=== PATIENT | male | born 1960 | race Caucasian/White ===

== ENCOUNTER 2016-09-08 18:49 | Emergency (ER) | payer OTHER ==
[~2016-09-08] VITALS: Ht 180.3 cm; Wt 75.9 kg
[2016-09-08 19:02] VITALS: BP 113/72; PULSE 59; RESP 15; O2SAT 99
[2016-09-08] MEDS ORDERED: Silver Nitrate Stick TOPICAL ONE ×2 (20:15→20:30)
--- NOTE | 2016-09-08 20:17 | ED.REPORT ---
HPI-General Illness Date of Service Sep 08, 2016 ED Provider: Kodak Giron PA-C James is an otherwise healthy 56-year-old male with a chief complaint of a laceration. Patient reports cutting the end of his right thumb with a new cook box filler approximately 24 hours ago. States that he cut off portion of skin which he threw away. Complains that, although the bleeding stopped last night, it restarted several times today as he was working. Denies unusual bruising, dental bleeding, difficulty with bleeding at surgical procedures. Denies comorbidities such as diabetes, HIV or immunosuppression. The patient is right handed. He reports a recent tetanus booster. Nursing Notes Stated Complaint: RIGHT THUMB LACERATION Chief Complaint: Extremity Trauma Nursing Notes Reviewed: Yes Allergies: Coded Allergies: No Known Allergies (Unverified , 09/08/16) General Time Seen by MD: 19:19 Chief Complaint Laceration Past Medical History Past Medical History Denies Review of Systems Negative unless stated otherwise in history of present illness Physical Exam General: Well appearing, well developed, well nourished, no acute distress. Right thumb: 1.5 cm x 1 cm avulsion on the radial aspect of the distal phalanx. Sensation is intact surrounding the wound. Full strength and range of motion of the MCP and DIP joint. Base is well-visualized with no foreign bodies or obvious involvement of bone. Head: Atraumatic, normocephalic. Eyes: No scleral icterus or injection. No discharge. Vision grossly intact. ENT: Voice clear, hearing grossly intact. Respiratory: No respiratory distress, no increased work of breathing. Speaks in complete sentences. Skin: Warm and dry. Neurological: Grossly nonfocal. Psychological: alert and oriented. Speech appropriate, linear and logical. Behavior appropriate. Vital Signs Vital Signs Date Time Temp Pulse Resp B/P Pulse Ox O2 Delivery O2 Flow Rate FiO2 09/08/16 19:02 37.0 59 15 113/72 99 Room Air Normal Procedures Laceration Management Laceration Management: Wound is cleansed with wound cleanser, which provokes bleeding as expected. Procedure Performed by: [facility] Location of Wound: Right thumb avulsion. Wound Length: 2 cm Re-Eval/Medical Decision Med Decision/Clinical Course 56 year old otherwise healthy male presents with a right thumb skin avulsion which occurred with a sharp cook box filler approximately 24 hours ago. Patient reports continued bleeding that is bothersome. Examination reveals neurovascularly intact right thumb with a 1.5 x 1 cm avulsed area. No involvement of the bone. Cleansing of the area provokes bleeding which is stopped with silver nitrate cautery. Wound is dressed with antibiotic ointment , Xeroform dressing, gauze, tube gauze. Considered possibility of a bleeding dyscrasia, and there are no other concerning symptoms such as bruising, dental bleeding, bleeding following procedures. Patient states tetanus up-to-date, I do not believe he requires antibiotics as patient is healthy. Eyes regarding wound care, [id number] analgesia. Advised regarding primary care follow-up, provided emergency return precautions. Patient verbalized understanding of, and consent to, the plan. Discharge & Departure Primary Impression: Avulsion of skin of thumb Encounter type: initial encounter Laterality: right Qualified Code: S61.001A - Unspecified open wound of right thumb without damage to nail, initial encounter Disposition: Home Discharge Condition All VS Reviewed: Yes Condition: Stable Additional Instructions: Evaluation for a thumb laceration in the emergency department includes interview and physical examination. We have cauterized injury to prevent bleeding, and dressed it with antibiotic ointment, nonadherent dressing and gauze. You have told me that you are up-to-date on your tetanus shot and I do not believe antibiotics are necessary because the wound is clean and you are healthy. I suggest that you keep the wound covered and dry for the next 2 days to allow the clot to fully form. Avoid using the hand as much as possible. After that he can wash with soap and water, inspect the injury and redressed with antibiotic ointment and gauze. Follow-up with yourr primary care provider if you has any further concerns. Return to emergency department for any new or worsening symptoms including increasing redness, swelling, pain or the appearance of pus Referrals: OTHER,PHYSICIAN [facility] EDSupervising Provider for APC: Sagar Carson Seth PA-C Sep 08, 2016 20:17
== END 2016-09-08 20:48 | disposition home or self-care (01) ==
LOC: SED 18:49
DX: S61.001A Unspecified open wound of right thumb without damage to nail, initial encounter (principal); W26.8XXA Contact with other sharp object(s), not elsewhere classified, initial encounter; Y93.89 Activity, other specified; Y92.018 Other place in single-family (private) house as the place of occurrence of the external cause; Y99.8 Other external cause status